=== PATIENT | female | born 1970 | race American Indian/Alaskan Native ===

== ENCOUNTER 2016-10-31 13:18 | Outpatient (CLI) | payer OTHER ==
--- NOTE | 2016-11-04 10:15 | Mammography Report ---
Bilateral mammogram: Compared to 08/18/14. CAD study utilized. Findings: Predominance adipose tissue bilaterally. Focal architectural distortion in the posterior right breast. 4 mm subareolar density right and left breast which appears to be new. No microcalcification. Benign axillary nodes without interval change. Impression: Spot magnification and if necessary sonographic examination of focal architectural distortion posterior inner right breast. Spot magnification and sonographic examination of density subareolar area right or left breast. BI-RADS CATEGORY: 0 = Needs additional imaging evaluation ACR BI-RADS MAMMOGRAPHIC CODES: 0 = Needs additional imaging evaluation; 1 = Negative; 2 = Benign; 3 = Probably benign; 4 = Suspicious; 5 = Malignant; 6 = Known biopsy-proven malignancy COMMENT: 1. Dense breast tissue, i.e., adenosis, fibrocystic changes, etc., may obscure an underlying neoplasm. 2. Approximately 10% of cancers are not detected with mammography. 3. A negative mammography report should not delay biopsy if a clinically suspicious mass is present. COMMENT: Patient follow-up letters are generated in [employer].
== END 2016-10-31 13:19 | disposition home or self-care (01) ==
LOC: SPVWC 13:18
PROVIDERS: ATTEND Obstetrics & Gynecology
DX: Z12.31 Encounter for screening mammogram for malignant neoplasm of breast (principal)
CPT/HCPCS: 77067; G0202

== ENCOUNTER 2016-11-21 10:41 | Outpatient (CLI) | payer OTHER ==
--- NOTE | 2016-11-21 11:29 | Mammography Report ---
Bilateral mammogram: Bilateral compression imaging is performed for asymmetry she described on recent examination of October 31. The CC compression image of the left breast is performed as well as lateral and cc compression images of the right breast. The left asymmetry is no longer identified with additional imaging. There is a faint nodular area inferior to the nipple seen in the lateral projection corresponding to the mammographic density previously noted. Review of prior exams however dating back to 2012 demonstrate a similar finding with no significant change. This is not identified on the CC projection. Impression: Stable right density. The left asymmetry is no longer identified. Recommendation: Annual mammogram followup. BI-RADS CATEGORY: 2 = Benign ACR BI-RADS MAMMOGRAPHIC CODES: 0 = Needs additional imaging evaluation; 1 = Negative; 2 = Benign; 3 = Probably benign; 4 = Suspicious; 5 = Malignant; 6 = Known biopsy-proven malignancy COMMENT: 1. Dense breast tissue, i.e., adenosis, fibrocystic changes, etc., may obscure an underlying neoplasm. 2. Approximately 10% of cancers are not detected with mammography. 3. A negative mammography report should not delay biopsy if a clinically suspicious mass is present.
== END 2016-11-21 10:42 | disposition home or self-care (01) ==
LOC: SPVWC 10:41
PROVIDERS: ATTEND Obstetrics & Gynecology
DX: R92.8 Other abnormal and inconclusive findings on diagnostic imaging of breast (principal)
CPT/HCPCS: 77066; G0204

== ENCOUNTER 2019-12-13 09:20 | Outpatient (CLI) | payer OTHER ==
--- NOTE | 2019-12-13 14:47 | Mammography Report ---
DIGITAL SCREENING MAMMOGRAM WITH CAD, 12/13/2019 INDICATION: Routine screening mammography. TECHNIQUE: Digital bilateral 2D mammography was obtained in the craniocaudal and mediolateral obliq ue projections. This examination was interpreted with the benefit of Computer-Aided Detection analysi s. COMPARISON: 10/31/2016, 08/18/2014, 07/15/2013 FINDINGS: Breast Density: The breasts are almost entirely fatty. There is no evidence of dominant mass, suspicious calcifications or architectural distortion in eithe r breast. Architectural changes from bilateral breast reduction are again noted. IMPRESSION: Follow up recommendation: Routine yearly BI-RADS Category 2: Benign. A "normal" or negative report should not discourage follow up or biopsy of a clinically significant f inding. A written summary of these findings will be mailed to the patient. The patient will be entered into a mammography reporting system which will generate a reminder letter for the patient's next appointmen t at the appropriate interval. The [employer] recommends yearly mammograms starting at age 40 and continuing as l kathy as a woman is in good health. Breast MRI is recommended for women with an approximate 20-25% or greater lifetime risk of breast cancer, including women with a strong family history of breast or ova [place] cancer or who have been treated for Hodgkin's disease. Signer Name: Leah Fraire MD Signed: 12/13/2019 2:43 PM Workstation Name: [id number]
== END 2019-12-13 09:21 | disposition home or self-care (01) ==
LOC: SPVWC 09:20
PROVIDERS: ATTEND Obstetrics & Gynecology
DX: Z12.31 Encounter for screening mammogram for malignant neoplasm of breast (principal); N64.89 Other specified disorders of breast
CPT/HCPCS: 77067

== ENCOUNTER 2021-01-01 11:01 | Outpatient (CLI) | payer OTHER ==
--- NOTE | 2021-01-01 14:46 | Mammography Report ---
DIGITAL SCREENING MAMMOGRAM WITH CAD, 01/01/2021 CLINICAL INFORMATION / INDICATION: Routine screening mammography. SCREENING MAMMO TECHNIQUE: Digital bilateral 2D mammography was obtained in the craniocaudal and mediolateral obliqu e projections. This examination was interpreted with the benefit of Computer-Aided Detection analysis . COMPARISON: 10/31/2016 FINDINGS: Breast Density: The breasts are almost entirely fatty. No dominant mass, suspicious calcifications, or architectural distortion in either breast. No interval change. IMPRESSION: No mammographic evidence of malignancy. Follow up recommendation: Routine yearly BI-RADS Category 1: Negative. A "normal" or negative report should not discourage follow up or biopsy of a clinically significant f inding. A written summary of these findings will be mailed to the patient. The patient will be entered into a mammography reporting system which will generate a reminder letter for the patient's next appointmen t at the appropriate interval. The [employer] recommends yearly mammograms starting at age 40 and continuing as l kathy as a woman is in good health. Breast MRI is recommended for women with an approximate 20-25% or greater lifetime risk of breast cancer, including women with a strong family history of breast or ova [place] cancer or who have been treated for Hodgkin's disease. Signer Name: Alexandria Brush MD Signed: 01/01/2021 2:39 PM Workstation Name: [id number]
== END 2021-01-01 11:02 | disposition home or self-care (01) ==
LOC: SPVWC 11:01
PROVIDERS: ATTEND Obstetrics & Gynecology
DX: Z12.31 Encounter for screening mammogram for malignant neoplasm of breast (principal)
CPT/HCPCS: 77067